=== PATIENT | male | born 1950 | race African-American/Black ===

== ENCOUNTER 2017-04-02 14:18 | Emergency (ER) | payer SELFPAY ==
[~2017-04-02] VITALS: Ht 175.3 cm; Wt 100.0 kg
[2017-04-02 14:42] VITALS: BP 153/99
[2017-04-02] MEDS ORDERED: TETANUS, DIPHTHERIA, PERTUSSIS VAC/PF 0.5ML (>7YR OLD) IM ONE (15:00)
[2017-04-02] MEDS ORDERED: BACITRACIN ZINC OINT UDPKT TOP ONE (15:00)
[2017-04-02] MEDS ORDERED: LIDOCAINE HCL 1% 20ML VIAL (Pyxis) INJ MC ONE (15:00)
== END 2017-04-02 16:05 | disposition home or self-care (01) ==
LOC: ER 14:48
DX: S61.210A Laceration without foreign body of right index finger without damage to nail, initial encounter (principal); W25.XXXA Contact with sharp glass, initial encounter; Y93.G1 Activity, food preparation and clean up; Y92.090 Kitchen in other non-institutional residence as the place of occurrence of the external cause; F17.210 Nicotine dependence, cigarettes, uncomplicated
CPT/HCPCS: 12001; 90471; 90715; 99283; J3490; Z7610

== ENCOUNTER 2017-04-04 15:36 | Emergency (ER) | payer SELFPAY | END 2017-04-04 17:57 | disposition left against medical advice (07) | LOC: ER 15:37 | DX: Z04.3 Encounter for examination and observation following other accident (principal); Z53.21 Procedure and treatment not carried out due to patient leaving prior to being seen by health care provider ==